=== PATIENT | female | born 1965 | race Caucasian/White ===

== ENCOUNTER 2024-08-28 05:57 | Day surgery (SDC) | payer OTHER, SELFPAY ==
[2024-08-12 07:54] LABS: % Basophils 0.7 % (0-2); % Eosinophils 2.9 % (0-6); % Immature Granulocytes 0.3 % (0-0.5); % Monocytes 9.1 % (1.7-9.3); Absolute Basophils 0.1 10^3/uL (0-0.2); Absolute Eosinophils 0.2 10^3/uL (0-0.7); Absolute Lymphocytes 2.4 10^3/uL (1.2-3.4); Absolute Monocytes 0.6 10^3/uL (0.1-0.6); Absolute Neutrophils 3.6 10^3/uL (1.4-6.5); Hemoglobin 12.4 g/dL (12.0-16.0); Mean Corp Hgb Conc. 32.6 g/dL (33.0-37.0); Mean Corpuscular Hgb 29.3 pg (27.0-31.0); Mean Corpuscular Volume 89.8 fL (81.0-99.0); Mean Platelet Volume 11.1 fL (7.4-10.4); Nucleated Red Blood Cells % 0 %; Platelet Count 201 10^3/uL (130-400); Red Blood Cell Count 4.23 10^6/uL (4.20-5.40); White Blood Cell Count 6.9 10^3/uL (4.8-10.8)
[2024-08-12 08:05] LABS: INR 1.13; PT 14.4 Sec (11.4-14.6)
[2024-08-12 08:16] LABS: ALT (SGPT) 16 U/L (0-35); AST (SGOT) 25 U/L (14-36); Albumin 4.3 g/dl (3.5-5.0); Alkaline Phosphatase 70 U/L (38-126); Blood Urea Nitrogen 17 mg/dl (7-17); Calcium 9.2 mg/dl (8.4-10.2); Carbon Dioxide 23 mmol/L (22-30); Chloride 108 mmol/L (98-107); Glucose 113 mg/dl (70-99); Magnesium 2.2 mg/dl (1.6-2.3); Potassium 4.9 mmol/L (3.5-5.1); Sodium 142 mmol/L (135-145); Total Protein 7.1 g/dl (6.3-8.2); eGFR > 60.00
[2024-08-12 08:51] VITALS: BMI 36.2
--- NOTE | 2024-08-13 18:51 | W.PN.UPDATE ---
Update Note
Progress Note Update
incidental pulmonary nodule 2.5mm-phoned patient who is aware-faxed to PCP
--- NOTE | 2024-08-24 10:17 | OID.L.PAT ---
Pulmonary Nodule Pat Letter
- -
08/24/24
HARLEY SERRANO
[address]
[place], [place] [address]
Dear HARLEY RIVERA,
A pulmonary nodule was seen on an imaging study done by [facility]. This was reviewed by the [facility] Pulmonary Nodule Advisory Board and the following recommendation was made:
Recommendation: Based on current guidelines, no further follow up is necessary. Patient could consider our Low Dose CT Lung Screening, if qualifies.
If you have any questions, please do not hesitate to contact your primary care physician. If you are in need of a Physician, you can go to [email or web address] and click on 'Find a Provider'. Type 'Family Medicine' in the search.
Oncology Nurse Navigator
[facility]
[phone]
--- NOTE | 2024-08-24 10:18 | OID.L.REC ---
Pulmonary Nodule Follow Up
- Recommendation
08/24/24
Pulmonary Nodule Review Recommendations
Your patient, HARLEY SERRANO, had a pulmonary nodule seen on an imaging study done on 08/12/24 in the [facility] Radiology Department.
This was reviewed by the [facility] Pulmonary Nodule Advisory Board and the following recommendation was made:
Recommendation: Based on current guidelines, no further follow up is necessary. Patient could consider our Low Dose CT Lung Screening, if qualifies.
If you have any questions please do not hesitate to contact us.
Sincerely,
Oncology Nurse Navigator
[facility]
[phone]
[2024-08-28] VITALS (11 sets, daily range): BP systolic 104–123; BP diastolic 54–71; BMI 33.3
[2024-08-28 09:00] LABS: ACT-LR - POC 261 Seconds (116-155)
[2024-08-28 09:21] LABS: ACT-LR - POC 231 Seconds (116-155)
--- NOTE | 2024-08-28 09:28 | ITS.CL.ABL ---
[employer] - Ablation
Ablation
Procedure Report:
ELECTROPHYSIOLOGY ABLATION STUDY
�
DATE:: August 28, 2024�����������������������������REFERRING: Dr. Charles Bonilla
�
INDICATION: Paroxysmal supraventricular tachycardia in the form of atrial fibrillation.��Drug refractory to dronedarone
�
HISTORY: See H and P.��25% burden on dronedarone therapy
�
ANTIARRHYTHMIC DRUG: Cindy around
�
PRE-PROCEDURE SEBASTIAN: No atrial thrombus on intracardiac ultrasound
�
PRESENTING RHYTHM: Sinus rhythm with spontaneous bursts of atrial tachycardia from the left superior pulmonary vein
�
'TIME-OUT':��called and confirmed.
�
SEDATION/ANESTHESIA:��provided via the anesthesia department using general anesthesia (LMA).
�
INTRAVENOUS/ARTERIAL ACCESS:
Right femoral venous -8 Sudanese
Left femoral venous - 8 Fr, 6 Fr
Cymyik-ge-byvkj sutures were utilized bilaterally
Ultrasound guidance for bilateral femoral vein access was utilized by me to obtain access with demonstration of normal anatomy
CHADS-VASC Score:
�
HAS-Bled Score
�
PROCEDURE:
1.��A decapolar CS catheter was placed within the CS for mapping and pacing.��This was also used as the reference catheter for the 3-D map.
�
2. The intracardiac ultrasound catheter was positioned in the RA to identify the FO for targeting of transseptal puncture, assist��in identification of the pulmonary vein ostia, monitoring pre and post ablation pulmonary vein flow velocities,
monitoring for 'bubble' formation during RF application as a sign of thermal injury,��and to monitor for pericardial effusion during mapping and ablation procedure.���Left atrial size, LV ejection fraction, and pulmonary vein flows were monitored
pre and post ablation procedure. The other valves were inspected and found to be free of significant regurgitation or stenosis.
�
3.��Half of the calculated heparin bolus was administered prior to the first transeptal puncture.��Transseptal puncture was performed to diagnose RA and LA pressure so that safetey of LA mapping and ablation could be further assessed, and to access
the left atrium and pulmonary veins for mapping and ablation.��This entailed advancing an 16 Sudanese steerable sheath with dilator and RF wire into the superior vena cava and withdrawing both (monitoring intracardiac ultrasound, fluoroscopy and tip
pressure) with the tip oriented toward the atrial septum.��The fossa ovalis was engaged (indicated by sudden displacement of the sheath tip as well as tenting of the fossa seen on intracardiac ultrasound).��Left atrial access required a pass with
the Brockenbrough needle extended.��Left atrial catheter position was confirmed by pressure monitoring (RA mean pressure [ ] mm Hg and LA mean presure [ ] mm Hg), LA saturation ( [ ] %),��as well as fluoroscopy.��The sheath was advanced over the
dilator and positioned in the left atrium.��This procedure was repeated for the Agilis sheath.��The remainder of the calculated heparin bolus was administered and heparin was
infused to maintain ACT at 300 -350 seconds throughout the case. The right groin was somewhat tortuous and required serial dilation and utilizing a standard dilator prior to exchanging for the RF dilator apparatus. This was all done under direct
fluoroscopic visualization.
�
4.��RA pacing was performed via the proximal decapolar poles and LA pacing was performed via the distal decapolr poles.
�
5. A quadrapolar catheter was first positioned at the His position for His Bundle recording which was tagged via the 3-D Navex sytem, and then passed to the RVA for RV pacing and recording.
�
6. 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
�
7.��Next, a 3-D map was created using Navex.���A 3-D reconstructed CT image was compared to the 3-D Navex map to assist in anatomic interpretation, mapping and ablation.��The CT image and the NavX image were fused.
�
8. A total of 50 lesions were given. 6 to the posterior wall and 44 to the pulmonary veins. After pulmonary vein isolation with the olive, basket, and flower poses the posterior wall was isolated from roof to mid wall so as such we added 6
additional flower poses to the posterior wall to prevent ingrowth into the posterior wall and reconnection. This rendered all 4 pulmonary veins isolated with entrance and exit block and the left atrial posterior wall electrically silent.
�
9. Patient was noninducible for atrial arrhythmia nor atrial fibrillation post procedure.
�
TOTAL FLOURO TIME: 17.8 minutes
�
REVERSAL OF HEPARIN: 30 mg of protamine, slow IV administration
�
COMPLICATIONS:
None
Intracardiac US shows no pericardial effusion post ablation.
�
SUMMARY:��
Complex left atrial mapping and ablation.
Isolation of all 4 pulmonary veins and the left atrial posterior wall as above.
�
RECOMMENDATIONS:
1. Admit to monitored bed.
2. Resume anticoagulation
3.��Jaciir-id-uefav suture and ambulate in 4 hours
4.��Consider same-day discharge
�
Copy to: Dr. Charles Bonilla
�
--- NOTE | 2024-08-28 14:59 | W.PN.UPDATE ---
Update Note
Progress Note Update
58 yo WF s/p PVI (Same day). She denies cp, sob, scott diet, voiding, amb w/o dizziness, EKG SR, b/l groins c/d/i no HT soft. She will continue OAC Eliquis resume tonight. She will stop Multaq and continue metoprolol. She will f/u Dr. Bonilla in 2 mo.
She is for d/c home after 230p .
SUMMARY:��
Complex left atrial mapping and ablation.
Isolation of all 4 pulmonary veins and the left atrial posterior wall as above.
�
RECOMMENDATIONS:
1. Admit to monitored bed.
2. Resume anticoagulation
3.��Itekvf-ew-iyklf suture and ambulate in 4 hours
4.��Consider same-day discharge
�
Copy to: Dr. Charles Bonilla
== END 2024-08-28 14:35 | disposition home or self-care (01) ==
LOC: CATH 05:57
PROVIDERS: ATTENDING PHYSICIAN Internal Medicine Cardiovascular Disease; FAMILY PHYSICIAN Family Medicine; OTHER PHYSICIAN Internal Medicine Cardiovascular Disease
DX: I48.0 Paroxysmal atrial fibrillation (principal); I47.19 Other supraventricular tachycardia; R06.02 Shortness of breath; R53.83 Other fatigue; I34.1 Nonrheumatic mitral (valve) prolapse; I34.0 Nonrheumatic mitral (valve) insufficiency; I10 Essential (primary) hypertension; E78.5 Hyperlipidemia, unspecified; Z85.3 Personal history of malignant neoplasm of breast; Z79.01 Long term (current) use of anticoagulants; Z87.891 Personal history of nicotine dependence
CPT/HCPCS: C1732; C1894; C1730; C1769; C1759; 36415; 75572; 80053; 83735; 85025; 85347; 85610; 86850; 86900; 86901; 93005; 93656; 93657; C1733; C1766; C1892; Q9967